=== PATIENT | male | born 1995 | race Asian ===

== ENCOUNTER 2021-11-17 16:54 | Emergency (ER) | payer SELFPAY ==
[2021-11-17 17:04] VITALS: BP 165/89; PULSE 112; RESP 16; TEMP 36.9; O2SAT 98
--- NOTE | 2021-11-17 17:13 | ED.HA ---
HPI - Headache General Chief Complaint: Headache Stated Complaint: Headache Time Seen by Provider: 11/17/21 17:13 Source: patient Mode of arrival: ambulatory Limitations: no limitations History of Present Illness HPI Narrative: 25-year-old male presented for complaint of right-sided headache worsening today. He states for the last few weeks he is having CHAVEZ daily but today it has been multiple times a day. Also endorses he has had intermittent episodes of headaches for the past 1 to 2 years, he states they usually last 30 minutes to an hour and usually only occur once a day during the episodes. He states he has been taking Excedrin Migraine which temporarily helps the pain. The pain is located behind the right eye and right upper nose. He denies sinus pressure, congestion, sore throat, ear pain, dizziness f/c. Endorses light sensitivity and rates pain 10 out of 10 at its worst, 5 out of 10 currently. Does not have PCP. Related Data Allergies Allergy/AdvReac Type Severity Reaction Status Date / Time No Known Allergies Allergy Verified 11/17/21 17:19 Review of Systems Review of Systems: CONSTITUTIONAL: Denies body aches, fever, chills, or sweats. EYES: Denies visual changes, redness, or discharge. ENT: Denies rhinorrhea, congestion, sore throat, or otalgia. CARDIOVASCULAR: Denies chest pain, palpitations, or edema. RESPIRATORY: Denies cough or dyspnea. GASTROINTESTINAL: Denies abdominal pain, nausea, vomiting, or diarrhea. GENITOURINARY: Denies dysuria or hematuria. SKIN: Denies rash, itching, or wounds. MUSCULOSKELETAL: Denies back pain, joint pain, or myalgia. NEUROLOGIC: endorses headache denies numbness, tingling, or weakness. PSYCH: Denies depression or anxiety. All systems reviewed & are unremarkable except as noted in HPI and below PMFSH Comments At time of signature, I have reviewed and agree with nursing past medical, surgical, social and family history unless otherwise noted. Please see nursing chart for further information. There is no relevant family history pertinent to the presenting complaint Exam Narrative: GENERAL: Well-appearing, well-nourished HEAD: Normocephalic, atraumatic. EYES: PERRLA, EOMI. No redness or drainage. Conjunctivae normal. ENT: Mucous membranes pink and moist. No rhinorrhea. Right TMs unable to visualize due to cerumen, Left TM normal Throat normal. Uvula midline. NECK: Normal AROM. Supple. No lymphadenopathy. CHEST: No respiratory distress. Clear to auscultation. HEART: Regular rate and rhythm. No murmur appreciated. Normal peripheral pulses. ABDOMEN: Soft, nontender, nondistended, normal active bowel sounds. MUSCULOSKELETAL: No bony tenderness. EXTREMITIES: Normal range of motion. No edema. SKIN: Warm, dry, no rash. Capillary refill normal. Normal skin turgor. NEURO: No focal deficits. Alert and oriented x3. Gait steady. PSYCH: Normal affect. No signs of depression or anxiety. Course Course Emergency Course: Patient is aware of diagnosis, understands and agrees to treatment plan. Anticipatory guidance given. Patient agrees to follow-up as directed and is aware of reasons to seek care at the emergency department. Portions of this record may have been created with voice recognition software Level of Care: Express Care Visit Vital Signs Vital signs: Vital Signs Temperature 98.5 F 11/17/21 17:04 Pulse Rate 112 H 11/17/21 17:04 Respiratory Rate 16 11/17/21 17:04 Blood Pressure 165/89 H 11/17/21 17:04 Pulse Oximetry 98 11/17/21 17:04 Temperature 98.5 F 11/17/21 17:04 Pulse Rate 112 H 11/17/21 17:04 Respiratory Rate 16 11/17/21 17:04 Blood Pressure 165/89 H 11/17/21 17:04 Pulse Oximetry 98 11/17/21 17:04 MDM - Headache Differential Diagnosis Differential diagnosis: Likely migraine, tension headache, headache and sinusitis Discharge Plan Discharge Clinical Impression: Headache Qualifiers: Headache type: unspecified Headache chronic
== END 2021-11-17 17:38 | disposition home or self-care (01) ==
PROVIDERS: Emergency Provider Nurse Practitioner Family
DX: R51.9 Headache, unspecified (principal)
CPT/HCPCS: 99203; 99213; G0463

== ENCOUNTER 2021-11-18 16:22 | Emergency (ER) | payer SELFPAY ==
[2021-11-18 16:26] VITALS: BP 149/75; PULSE 111; RESP 18; TEMP 36.8; O2SAT 100
[2021-11-18 17:40] VITALS: BP 158/90; PULSE 97; RESP 18; TEMP 36.7; O2SAT 100
--- NOTE | 2021-11-18 19:20 | ED.HA ---
HPI - Headache General Chief Complaint: Headache <Kathi Faustin PA-C - Last Filed: 11/18/21 22:05> Stated Complaint: migraine <WOODY Perea Last Filed: 11/18/21 22:05> Time Seen by Provider: 11/18/21 18:52 <WOODY Perea Last Filed: 11/18/21 22:05> Source: patient <WOODY Perea Last Filed: 11/18/21 22:05> Mode of arrival: ambulatory <WOODY Perea Last Filed: 11/18/21 22:05> Limitations: no limitations <WOODY Perea Last Filed: 11/18/21 22:05> History of Present Illness HPI Narrative: This is a 25-year-old male who presents to the ED with complaints of a right periorbital headache for the past 3 weeks. Patient reports the pain presents at least once a day and last for about 30 minutes at a time. Over the last 2 days, he has returned to work and had increased episodes of the pain throughout the day. Patient has a history of migraines and states that have presented similarly in the past, but the episodes have only lasted for a week or so. He also reports having occasional drainage from his eyes and nose associated with the pain. Patient was seen in at an urgent care yesterday and prescribed ibuprofen for his pain, which only provides minimal relief. Patient denies any fever, chills, nausea, vomiting, abdominal pain, vision changes, neck pain, weakness, numbness tingling. <WOODY Perea Last Filed: 11/18/21 22:05> Related Data Allergies/Adverse Reactions: Allergies Allergy/AdvReac Type Severity Reaction Status Date / Time No Known Allergies Allergy Verified 11/17/21 17:19 <WOODY Perea Last Filed: 11/18/21 22:05> Review of Systems Review of Systems: CONSTITUTIONAL: Denies fever, chills, or sweats. EYES: Reports discharge. Denies visual changes, redness. ENT: Reports rhinorrhea. Denies congestion, sore throat, or otalgia. CARDIOVASCULAR: Denies chest pain. RESPIRATORY: Denies cough or dyspnea. GASTROINTESTINAL: Denies abdominal pain, nausea, vomiting, or diarrhea. SKIN: Denies rash or itching. MUSCULOSKELETAL: Denies neck pain, back pain, joint pain, or myalgia. NEUROLOGIC: Reports headache. Denies numbness, tingling, or weakness. <Kathi Faustin PA-C - Last Filed: 11/18/21 22:05> All systems reviewed & are unremarkable except as noted in HPI and below <Kathi Faustin PA-C - Last Filed: 11/18/21 22:05> [facility] Past Medical History Medical History: Medical History (Updated 11/18/21 @ 22:00 by Kathi Faustin PA-C) Migraine <Kathi Faustin PA-C - Last Filed: 11/18/21 22:05> Surgical History Surgical History: Surgical History (Updated 11/18/21 @ 22:00 by Kathi Faustin PA-C) No pertinent past surgical history <Kathi Faustin PA-C - Last Filed: 11/18/21 22:05> Social History Social History: Social History (Updated 11/18/21 @ 22:00 by Kathi Faustin PA-C) Smoking status: Never smoker <Kathi Faustin PA-C - Last Filed: 11/18/21 22:05> Exam Narrative: GENERAL: Well appearing, well-nourished, non-toxic, in no acute distress. HEAD: Normocephalic, atraumatic. EYES: PERRLA/EOMI, conjunctivae clear bilaterally. No nystagmus. NOSE: Normal, no drainage THROAT: Pharynx clear, no exudate. MMs moist. NECK: Supple. No adenopathy, no masses. Full ROM. RESPIRATORY: Airway patent, respirations nonlabored. Clear to auscultation bilaterally, no rales, rhonchi, wheezing. CARDIOVASCULAR: Regular rate and rhythm without murmurs, rubs, or gallops. Peripheral pulses 2+ and equal bilaterally. ABDOMINAL: Soft, nontender, nondistended, no hepatosplenomegaly. Normoactive BS. MUSCULOSKELETAL: Moves all extremities. Strength/ROM intact 5/5 in extremities without gross deformities or TTP. No edema. SKIN: Warm, dry, normal color. No rashes. NEURO: A&O X3. Speech clear. Cranial nerves II-XII intact. Steady gait. No ataxic movements. PSYCHIATRIC: Appropriate mood and affect. Normal interaction. <Rache
[2021-11-18] MEDS: SODIUM CHLORIDE 0.9% IV 1,000 ML 999 ML IV CONT (19:50)
[2021-11-18] MEDS: ACETAMINOPHEN 500 MG TABLET 1000 MG PO (19:50)
[2021-11-18] MEDS: diphenhydrAMINE HCl INJ 50 MG/ML VIAL 25 MG IV PUSH (20:05)
[2021-11-18] MEDS: KETOROLAC 30 MG/ML VIAL (*BKC) IV PUSH (20:09)
[2021-11-18] MEDS: METOCLOPRAMIDE HCL INJ 10 MG/2 ML VIAL IV PUSH (20:09)
[2021-11-18 21:30] VITALS: BP 140/82; PULSE 84; RESP 16; TEMP 36.4; O2SAT 100
== END 2021-11-18 21:32 | disposition home or self-care (01) ==
PROVIDERS: Emergency Provider Emergency Medicine
DX: G43.009 Migraine without aura, not intractable, without status migrainosus (principal)
CPT/HCPCS: 96361; 96374; 96375; 99284; A9270; J1200; J1885; J2765; J7030